=== PATIENT | male | born 1995 | race Caucasian/White ===

== ENCOUNTER → 2016-07-13 | Outpatient (CLI) | payer OTHER | LOC: RAD 09:35 | DX: Z72.0 Tobacco use (principal) | CPT/HCPCS: 71020 ==

== ENCOUNTER 2020-08-07 20:53 | Emergency (ER) | payer OTHER ==
[~2020-08-07 20:53] MED LIST: BACTRIM 400-801 EACH PO; CLEOCIN HCL150 MG PO; IBUPROFEN600 MG PO; KEFLEX CAP 500500 MG PO; NORCO 5-325 TA1 EACH PO; PERCOCET 5-3251 EACH PO; SUBOXONE 8 MG-1 EACH PO; SUBOXONE 8 MG-1 EACH SL
[2020-08-07] MEDS ORDERED: VIBRAMYCIN100 MG PO (22:26)
[2020-08-07] MEDS ORDERED: ZOFRAN ODT 4 MG4 MG PO (22:26)
[2020-08-11 19:08] LABS: CHLAMYDIA TRACHOMATIS, NAA Positive (Negative); NEISSERIA GONORRHOEAE, NAA Positive (Negative)
== END 2020-08-07 22:55 | disposition home or self-care (01) ==
LOC: ER1 20:53
PROVIDERS: Urology
DX: N34.2 Other urethritis (principal); F17.200 Nicotine dependence, unspecified, uncomplicated
CPT/HCPCS: 81001; 96372; 99283; J0696

== ENCOUNTER 2021-04-09 15:55 | Emergency (ER) | payer OTHER ==
[~2021-04-09 15:55] MED LIST changes: +VIBRAMYCIN100 MG PO; +ZOFRAN ODT 4 MG4 MG PO
[2021-04-09] MEDS ORDERED: AUGMENTIN 875-1 EACH PO (16:24)
== END 2021-04-09 17:25 | disposition home or self-care (01) ==
LOC: ER1 15:55
DX: K04.7 Periapical abscess without sinus (principal); F17.200 Nicotine dependence, unspecified, uncomplicated
CPT/HCPCS: 99282

== ENCOUNTER 2021-09-24 15:01 | Emergency (ER) | payer OTHER ==
[~2021-09-24 15:01] MED LIST changes: +AUGMENTIN 875-1 EACH PO
[2021-09-24 16:08] LABS: HEMOGLOBIN 14.8 gm/dl (14.0-17.5); RED BLOOD COUNT 4.85 M/UL (4.20-5.50); WHITE BLOOD COUNT 11.1 K/UL (4.5-11.0)
[2021-09-24 16:26] LABS: BUN/CREATININE RATIO 10 (0-10)
[2021-09-24] MEDS ORDERED: HYDROCODON-ACE1 EAC4 PO (17:26)
[2021-09-24] MEDS ORDERED: ZOFRAN 4 MG TAB4 MG PO (17:26)
[2021-09-24] MEDS ORDERED: AMOX TR-K CLV1 EAC4 PO (17:26)
== END 2021-09-24 17:37 | disposition home or self-care (01) ==
LOC: ER1 15:01
PROVIDERS: Preventive Medicine Occupational Medicine
DX: K52.9 Noninfective gastroenteritis and colitis, unspecified (principal); F17.210 Nicotine dependence, cigarettes, uncomplicated
CPT/HCPCS: 80053; 83690; 85025; 85652; 86140; 96374; 96375; 99284; J1200; J1885; Q9967

== ENCOUNTER 2021-11-29 22:57 | Emergency (ER) | payer OTHER ==
[~2021-11-29 22:57] MED LIST changes: +AMOX TR-K CLV1 EAC4 PO; +HYDROCODON-ACE1 EAC4 PO; +ZOFRAN 4 MG TAB4 MG PO
[2021-11-29 23:57] LABS: HEMOGLOBIN 14.4 gm/dl (14.0-17.5); RED BLOOD COUNT 4.71 M/UL (4.20-5.50); WHITE BLOOD COUNT 7.3 K/UL (4.5-11.0)
[2021-11-30 00:11] LABS: BUN/CREATININE RATIO 18 (0-10)
== END 2021-11-30 01:15 | disposition home or self-care (01) ==
LOC: ER1 22:57
PROVIDERS: Student in an Organized Health Care Education/Training Program
DX: K02.9 Dental caries, unspecified (principal); H92.01 Otalgia, right ear; F17.210 Nicotine dependence, cigarettes, uncomplicated
CPT/HCPCS: 80053; 85025; 99283